=== PATIENT | female | born 1975 | race Caucasian/White ===

== ENCOUNTER 2018-09-17 08:48 | Outpatient (CLI) | payer BC | END 2018-09-17 08:49 | disposition home or self-care (01) | LOC: DTY/OP 08:48 | PROVIDERS: ATTEND Surgery | DX: E66.01 Morbid (severe) obesity due to excess calories (principal) | CPT/HCPCS: 97802 ==

== ENCOUNTER 2018-10-21 11:00 | Inpatient (IN) | payer BC ==
[2018-10-21 11:58] VITALS: BMI 39.8
[2018-10-30] MEDS ORDERED: Heparin 5,000 UNITS/ML VIAL ONE (08:24)
[2018-10-30] MEDS ORDERED: Bupivacaine/Epinephrine 0.25% 30 ML VIAL ONE (09:59)
[2018-10-30] MEDS ORDERED: Lidocaine 2% Jelly 5 ML TUBE ONE (10:08)
[2018-10-30] MEDS ORDERED: Fentanyl 100 MCG/2 ML VIAL ONE ×3 (10:08→12:03)
[2018-10-30] MEDS ORDERED: Ondansetron HCl/PF 4 MG/2 ML Vial IVP PRN (11:31)
[2018-10-30] MEDS ORDERED: Promethazine HCl 25 MG/ML VIAL SLOW IVP PRN (11:31)
[2018-10-30] MEDS ORDERED: Promethazine HCl 25 MG/ML VIAL IM PRN ×3 (11:31→13:05)
[2018-10-30] MEDS ORDERED: Ondansetron PF 4 MG/2 ML Vial IVP PRN ×2 (12:13→13:05)
[2018-10-30] MEDS ORDERED: Naloxone HCl 0.4 mg/ml Vial IV PRN (12:13)
[2018-10-30] MEDS ORDERED: diphenhydrAMINE 50 MG/ML VIAL IVP PRN ×2 (12:13→13:05)
[2018-10-30] MEDS ORDERED: diphenhydrAMINE 50 MG/ML VIAL IM PRN (12:13)
[2018-10-30] MEDS ORDERED: fentaNYL Citrate/PF 2,000 MCG in Sodium Chloride 0.9% 60 ML IV PRN (12:13)
[2018-10-30] MEDS ORDERED: Zolpidem Tartrate 5 MG TAB PO PRN (12:13)
[2018-10-30] MEDS ORDERED: Communication Order-Pharmacy FS SCH (12:15)
[2018-10-30] MEDS ORDERED: Dextrose 50% Abboject 50 ML SYRINGE SLOW IVP PRN (13:05)
[2018-10-30] MEDS ORDERED: hydrALAZINE 20 MG/ML VIAL SLOW IVP PRN (13:05)
[2018-10-30] MEDS ORDERED: Dextrose 5% in Water 1,000 ML IV PRN (13:05)
[2018-10-30] MEDS ORDERED: Hydrocodone-Acetamin 15 ML UDCUP PO PRN (13:05)
[2018-10-30] MEDS ORDERED: Sodium Chloride 0.9% (PF) 10 ML VIAL FS PRN (13:19)
[2018-10-30] MEDS: Acetaminophen 1,000 MG in Premix Bag 1 BAG IVPB SCH ×2 (16:04→21:42)
[2018-10-30] MEDS: D5 1/2 NS w/20 mEq KCL 1,000 ML IV SCH ×2 (17:12→21:05)
[2018-10-30] MEDS ORDERED: Enoxaparin Sodium 40 MG/0.4 ML SYRINGE SC SCH (21:00)
[2018-10-30] MEDS: diphenhydrAMINE 25 MG CAP PO PRN (21:43)
--- NOTE | 2018-10-31 01:55 | OP ---
DATE OF PROCEDURE: 10/30/2018 PREOPERATIVE DIAGNOSIS: Morbid obesity with a BMI of 40. POSTOPERATIVE DIAGNOSIS: Morbid obesity with a BMI of 40, paraesophageal hiatal hernia. PROCEDURES PERFORMED: 1. Laparoscopic sleeve gastrectomy with [place] staple-line reinforcements and 38-[place] bougie. 2. Laparoscopic hiatal hernia repair without fundoplication. 3. EGD. ANESTHESIA: General. ESTIMATED BLOOD LOSS: Minimal. COMPLICATIONS: None. SPECIMEN: Stomach. FINDINGS: Paraesophageal hiatal hernia found and repaired. Normal postoperative EGD. TECHNIQUE: The patient was taken to the operating room and laid supine on the operating room table. After general anesthetic was obtained, arms and legs were double strapped to bariatric table. The abdomen was shaved, prepped, and draped in a sterile fashion. OG tube had been used to decompress the stomach. Left subcostal 5 mm Optiview trocar was placed in the usual fashion and high-flow pneumoperitoneum was obtained. Right subcostal 5 mm port as well as two lower abdominal 12 mm ports were placed in direct visualization. A 5 mm incision was made at the xiphoid and Edd was used to raise the liver off the GE junction. Short gastrics were taken down mid body of stomach to left kyle of diaphragm. Left kyle, fundus, and angle of His were completely dissected free, exposing a paraesophageal hiatal hernia. Short gastrics were taken down to a distance of 6 cm proximal to the pylorus. Circumferential dissection of the esophagus was performed. Both crura posteriorly and anteriorly are exposed and mediastinal dissection was performed in a circumferential fashion, bringing the fundus back down into the abdominal cavity. A 38-bougie was brought in with its tip left in the antrum of the stomach. One posterior Ethibond suture and the Ti-Knot system was used to close the posterior crura. Multiple loads of the [place] stapling device were used to perform the sleeve. The first was fired up at a distance of 6 cm proximal to the pylorus, angled up towards the incisura. Multiple loads were fired up along the bougie and the stomach was completely transected at the angle of His. A few bleeders on the staple line were clipped using laparoscopic clip device. Stomach was removed from the left abdominal incision. This fascial defect was closed using GraNee needle and 0 Vicryl tie. EGD scope was passed through esophagus stomach to the level of duodenum without obstruction. There was no air leakage. No bleeding through the staple line. EGD scope was used to decompress the stomach, it was pulled and removed. Edd retractor was removed under direct visualization without bleeding. All port sites were infiltrated using local anesthetic and removed without bleeding. Pneumoperitoneum was let down. Vicryl used to close the fascial defect from the left abdominal incisions. All incisions were irrigated and closed using 4-0 Monocryl and Dermabond. The patient was then returned to Recovery in stable condition. All instrument counts, needle counts, and lap counts were correct. Job ID: [id number]
[2018-10-31] MEDS: Acetaminophen 1,000 MG in Premix Bag 1 BAG IVPB SCH ×2 (04:22→10:47)
[2018-10-31] MEDS ORDERED: Levothyroxine Sodium 75 MCG TAB PO SCH (06:00)
[2018-10-31] MEDS: D5 1/2 NS w/20 mEq KCL 1,000 ML IV SCH (06:21)
[2018-10-31] MEDS: diphenhydrAMINE 25 MG CAP PO PRN (06:21)
[2018-10-31 06:36] LABS: Chloride 104 mmol/L (98-107); Potassium 3.8 mmol/L (3.5-5.1); Sodium 134 mmol/L (136-145)
[2018-10-31 06:37] LABS: Calcium 8.8 mg/dL (7.8-10.44); Glucose 106 mg/dL (70-105)
[2018-10-31 06:39] LABS: Anion Gap 12 mmol/L (10-20); Carbon Dioxide 22 mmol/L (22-29)
[2018-10-31 06:41] LABS: BUN (Urea Nitrogen) 4 mg/dL (7.0-18.7); Calc. Creatinine Clearance 179 mL/min (70-130); Estimated GFR-MDRD Greater than 90
[2018-10-31 06:44] LABS: #Eosinphils 0.1 thou/uL (0.0-0.7); #Lymphocytes 3.4 thou/uL (1.20-3.40); #Monocytes 0.9 thou/uL (0.11-0.59); #Neutrophils 8.2 thou/uL (1.40-6.50); %Basophils 0.1 % (0.0-1.0); %Eosinophils 0.5 % (0.0-10.0); %Lymphocytes 26.9 % (21.0-51.0); %Monocytes 6.8 % (0.0-10.0); %Neutrophils 65.8 % (42.0-75.0); Hemoglobin 12.4 g/dL (12.0-16.0); Mean Corpuscular HGB CONC 32.8 g/dL (32.0-36.0); Mean Corpuscular Hemoglobin 30.3 pg (27.0-31.0); Mean Corpuscular Volume 92.5 fL (78.0-98.0); Mean Platelet Volume 9.3 fL (7.4-10.4); Platelet Count 250 thou/uL (130-400); RBC Distribution Width 12.3 % (11.5-14.5); Red Blood Cell (RBC) Count 4.08 mill/uL (4.20-5.40); White Blood Cell (WBC) Count 12.5 thou/uL (4.8-10.8)
[2018-10-31 07:30] VITALS: BP 153/94; TEMP 98.1
[2018-10-31] MEDS ORDERED: Pantoprazole 40 MG VIAL IVP SCH (09:00)
--- NOTE | 2018-10-31 10:15 | DIS ---
DATE OF ADMISSION: 10/30/2018 DATE OF DISCHARGE: 10/31/2018 ADMITTING DIAGNOSIS: Morbid obesity. DISCHARGE DIAGNOSIS: Morbid obesity. PROCEDURE PERFORMED: Laparoscopic sleeve gastrectomy by Dr. Thomas without complication. CONDITION ON DISCHARGE: Improved. HOSPITAL COURSE: On postop day 1, the patient is doing well. She is tolerating liquids without difficulty. Her pain is controlled. She is ambulatory. Her vital signs are stable. She is being discharged home. She will follow up with me in 2 weeks. Job ID: [id number]
== END 2018-10-31 11:10 | disposition home or self-care (01) | DRG 621 ==
LOC: SURG A 10-30 07:36 → SURG B 10-30 12:40
PROVIDERS: ADMIT Surgery; ATTEND Surgery
PROC: 0DB64Z3 Excision of Stomach, Percutaneous Endoscopic Approach, Vertical (ICD-10-PCS; principal; 2018-10-30)
PROC: 0BQT4ZZ Repair Diaphragm, Percutaneous Endoscopic Approach (ICD-10-PCS; 2018-10-30)
PROC: 0DJ08ZZ Inspection of Upper Intestinal Tract, Via Natural or Artificial Opening Endoscopic (ICD-10-PCS; 2018-10-30)
DX: E66.01 Morbid (severe) obesity due to excess calories (principal); K44.9 Diaphragmatic hernia without obstruction or gangrene; Z68.41 Body mass index [BMI] 40.0-44.9, adult
CPT/HCPCS: 36415; 80048; 85025; 88307; 88312; C9113; J0131; J0690; J1644; J1650; J3010; J3490; Q0163

== ENCOUNTER 2018-10-21 11:43 | Outpatient (CLI) | payer BC ==
[2018-10-21 12:52] LABS: #Basophils 0.1 thou/uL (0.0-0.2); #Eosinphils 0.1 thou/uL (0.0-0.7); #Monocytes 0.7 thou/uL (0.11-0.59); #Neutrophils 5.6 thou/uL (1.40-6.50); %Basophils 0.8 % (0.0-1.0); %Eosinophils 1.1 % (0.0-10.0); %Lymphocytes 31.3 % (21.0-51.0); %Monocytes 7.3 % (0.0-10.0); %Neutrophils 59.5 % (42.0-75.0); Hemoglobin 13.5 g/dL (12.0-16.0); Mean Corpuscular HGB CONC 33.4 g/dL (32.0-36.0); Mean Corpuscular Hemoglobin 30.5 pg (27.0-31.0); Mean Corpuscular Volume 91.3 fL (78.0-98.0); Mean Platelet Volume 8.9 fL (7.4-10.4); Platelet Count 257 thou/uL (130-400); RBC Distribution Width 12.4 % (11.5-14.5); Red Blood Cell (RBC) Count 4.41 mill/uL (4.20-5.40); White Blood Cell (WBC) Count 9.5 thou/uL (4.8-10.8)
--- NOTE | 2018-10-21 12:59 | RAD ---
CHEST 2 VIEWS: Date: 10/21/18 HISTORY: Preoperative evaluation. COMPARISON: 09/03/12. FINDINGS: Heart size is normal. Lungs are clear. IMPRESSION: No acute intrathoracic disease. POS: TPC
[2018-10-21 13:22] LABS: ALT (SGPT) 18 U/L (8-55); AST (SGOT) 19 U/L (5-34); Albumin 4.2 g/dL (3.5-5.0); Alkaline Phosphatase 50 U/L (40-150); Anion Gap 12 mmol/L (10-20); BUN (Urea Nitrogen) 16 mg/dL (7.0-18.7); Bilirubin, Direct 0.1 mg/dL (0.1-0.3); Bilirubin, Total 0.4 mg/dL (0.2-1.2); Calc. Creatinine Clearance 0 mL/min (70-130); Calcium 9.7 mg/dL (7.8-10.44); Carbon Dioxide 21 mmol/L (22-29); Chloride 106 mmol/L (98-107); Estimated GFR-MDRD Greater than 90; Globulin 3.2 g/dL (2.4-3.5); Glucose 88 mg/dL (70-105); Hemoglobin A1c 4.9 % (4.0-6.0); Protein, Total 7.4 g/dL (6.0-8.3); Sodium 135 mmol/L (136-145)
== END 2018-10-21 11:44 | disposition home or self-care (01) ==
LOC: LABBT 11:43
PROVIDERS: ATTEND Surgery
DX: Z01.818 Encounter for other preprocedural examination (principal); E66.01 Morbid (severe) obesity due to excess calories
CPT/HCPCS: 71046; 80053; 80076; 83036; 85025; 93005; 93010